=== PATIENT | female | born 1975 | race Asian ===

== ENCOUNTER 2019-09-05 18:48 | Inpatient (IN) | payer MEDICAID ==
[~2019-09-05] VITALS: Ht 162.6 cm; Wt 59.2 kg
[2019-09-05] MEDS ORDERED: LEVO150 PO (23:56)
[2019-09-05] MEDS ORDERED: GABA-1181 PO (23:56)
[2019-09-05] MEDS ORDERED: DULO60CA44 PO (23:56)
[2019-09-06] MEDS ORDERED: PRAZ1 PO (00:01)
[2019-09-06] MEDS ORDERED: HALOPERIDOL 5 MG TABLET PO PRN (00:15)
[2019-09-06] MEDS ORDERED: ZOLPIDEM TARTRATE 10 MG TABLET PO PRN (00:15)
[2019-09-06] MEDS: LORazepam 2 MG TABLET PO PRN ×3 (00:54→18:45)
[2019-09-06 01:32] VITALS: BP 113/86
[2019-09-06] MEDS ORDERED: CloNIDine HCL 0.1 MG TABLET PO PRN (08:45)
[2019-09-06] MEDS ORDERED: ALBUTEROL SULFATE HFA 90 MCG/PUFF 8 GM INHALER IH PRN (08:45)
[2019-09-06] MEDS ORDERED: PETROLATUM,WHITE 28 GM JELLY TP PRN (08:45)
[2019-09-06] MEDS ORDERED: ONDANSETRON HCL 4 MG TABLET PO PRN (08:45)
[2019-09-06] MEDS ORDERED: MAGNESIUM HYDROXIDE SUSPENSION 30 ML UDCUP PO PRN (08:45)
[2019-09-06] MEDS ORDERED: LOPERAMIDE HCL 2 MG CAPSULE PO PRN (08:45)
[2019-09-06] MEDS ORDERED: ACETAMINOPHEN 325 MG TABLET PO PRN (08:45)
[2019-09-06] MEDS ORDERED: NICOTINE 14 MG/24 HOUR PATCH TD PRN (08:45)
[2019-09-06] MEDS ORDERED: MAG HYDROX/AL HYDROX/SIMETH ES 30 ML SUSPENSION UDCUP PO PRN (08:45)
[2019-09-06] MEDS ORDERED: GuaiFENesin/D-METHORPHAN [SUGAR-FREE] 200-20MG/10 ML SYRUP UDCUP PO PRN (08:45)
[2019-09-06] MEDS ORDERED: IBUPROFEN 400 MG TABLET PO PRN (08:45)
[2019-09-06] MEDS ORDERED: DOCUSATE SODIUM 100 MG CAPSULE PO PRN (08:45)
[2019-09-06] MEDS: GABAPENTIN 300 MG CAPSULE PO SCH ×3 (09:16→17:09)
[2019-09-06 10:16] VITALS: BP 100/72
[2019-09-06] MEDS: DULoxetine HCL 60 MG CAPSULE PO SCH (10:29)
[2019-09-06 16:20] VITALS: BP 98/60
[2019-09-06] MEDS: IBUPROFEN 400 MG TABLET PO PRN (18:45)
[2019-09-06] MEDS: PRAZOSIN HCL 2 MG CAPSULE PO SCH (20:48)
[2019-09-06] MEDS ORDERED: PRAZOSIN HCL 1 MG CAPSULE PO SCH (21:00)
[2019-09-07 02:14] VITALS: BP 102/68
[2019-09-07] MEDS: LEVOTHYROXINE SODIUM 150 MCG TABLET PO SCH (05:59)
[2019-09-07] MEDS ORDERED: LEVOTHYROXINE SODIUM 150 MCG TABLET PO SCH (06:30)
[2019-09-07 08:23] LABS: BASOPHILS % (AUTO) 0.9 % (0.0-2.0); EOSINOPHILS % (AUTO) 5.1 % (1.0-6.0); HEMATOCRIT 34.9 % (36-46); HEMOGLOBIN 11.9 g/dL (12.0-16.0); LYMPHOCYTES # (AUTO) 1.9 K/uL (1.0-4.8); LYMPHOCYTES % (AUTO) 36.6 % (22.0-44.0); MEAN CORPUSCULAR VOLUME 91 fL (80-100); MONOCYTES # (AUTO) 0.8 K/uL (0.1-1.0); MONOCYTES % (AUTO) 15.8 % (2.0-9.0); NEUTROPHILS # (AUTO) 2.2 K/uL (1.8-7.7); NEUTROPHILS % (AUTO) 41.6 % (40.0-70.0); PLATELET COUNT (AUTO) 278 K/uL (150-450); RED BLOOD CELL COUNT(AUTO) 3.82 MIL/uL (4.00-5.20); RED CELL DISTRIBUTION WIDTH 13.2 % (11.5-14.5)
[2019-09-07 08:33] LABS: HEMOGLOBIN A1C 5.3 % (3.8-5.6)
[2019-09-07 09:03] LABS: ALANINE AMINOTRANSFERASE 20 U/L (12-78); ALBUMIN 3.6 g/dL (3.4-5.0); ALKALINE PHOSPHATASE 74 U/L (46-116); ANION GAP 10 mmol/L (8-16); ASPARTATE AMINOTRANSFERASE 17 U/L (15-37); BILIRUBIN,TOTAL 0.1 mg/dL (0.1-1.0); CALCIUM, TOTAL 8.5 mg/dL (8.8-10.5); CARBON DIOXIDE 22 mmol/L (22-29); CHLORIDE 106 mmol/L (98-107); CHOLESTEROL 158 mg/dL (131-200); CREATININE 0.82 mg/dL (0.60-1.30); GLOMERULAR FILTR. RATE CALC > 60 mL/min (>60); GLUCOSE,RANDOM 96 mg/dL (70-110); HDL CHOLESTEROL 45 mg/dL (40-60); POTASSIUM 3.8 mmol/L (3.5-5.1); SODIUM SERUM 138 mmol/L (136-145); TOTAL PROTEIN, SERUM 7.2 g/dL (6.4-8.2); TRIGLYCERIDES 112 mg/dL (15-150); UREA NITROGEN, BLOOD 18 mg/dL (7-18)
[2019-09-07 09:04] LABS: CHOL/HDL RATIO 3.5 (3.9-5.7); FREE T4 (FREE THYROXINE) 0.85 ng/dL (0.76-1.46); LDL CHOL (CALC.) 91 mg/dL (0-130); THYROID STIMULATING HORMONE 1.28 uIU/mL (0.36-3.74)
[2019-09-07] MEDS: GABAPENTIN 300 MG CAPSULE PO SCH ×3 (09:18→17:05)
[2019-09-07] MEDS: DULoxetine HCL 60 MG CAPSULE PO SCH (09:18)
[2019-09-07] MEDS: PROPRANOLOL HCL 10 MG TABLET PO SCH ×3 (09:21→17:05)
[2019-09-07 09:33] LABS: APPEARANCE,URINE CLOUDY (CLEAR); BILIRUBIN,URINE NEGATIVE (NEGATIVE); GLUCOSE, URINE (UA) NEGATIVE (NEGATIVE); KETONES,URINE NEGATIVE (NEGATIVE); LEUKOCYTE ESTERASE ,URINE NEGATIVE (NEGATIVE); NITRATE,URINE NEGATIVE (NEGATIVE); OCCULT BLOOD,URINE NEGATIVE (NEGATIVE); PH,URINE 7.5 (5.0-8.0); PROTEIN,URINE NEGATIVE (NEGATIVE); UROBILINOGEN,URINE 0.2 mg/dL (<=1.0)
[2019-09-07 09:37] LABS: AMPHET/METH SCREEN,URINE NEGATIVE (NEGATIVE); BARBITURATE SCREEN, URINE NEGATIVE (NEGATIVE); BENZODIAZEPINES SCREEN,URINE NEGATIVE (NEGATIVE); CANNABINOID SCREEN,URINE NEGATIVE (NEGATIVE); COCAINE SCREEN,URINE NEGATIVE (NEGATIVE); METHADONE SCREEN, URINE NEGATIVE (NEGATIVE); OPIATE SCREEN,URINE NEGATIVE (NEGATIVE)
[2019-09-07 09:40] LABS: PHENCYCLIDINE SCREEN,URINE NEGATIVE (NEGATIVE)
[2019-09-07 09:54] LABS: BACTERIA,URINE None Seen /HPF (None Seen); RBC,URINE None Seen /HPF (0-2); SQUAMOUS EPITHELIAL CELL,UR Few /LPF (None Seen); WBC,URINE None Seen /HPF (0-5)
[2019-09-07 09:55] LABS: AMORPHOUS SEDIMENT,UR Moderate /LPF (None Seen)
[2019-09-07 12:11] VITALS: BP 110/76
[2019-09-07] MEDS: OxyCODONE HCL/ACETAMINOPHEN 5-325 MG TABLET PO PRN ×2 (12:11→20:53)
[2019-09-07] MEDS: LORazepam 2 MG TABLET PO PRN ×3 (13:27→23:43)
[2019-09-07 16:10] VITALS: BP 106/61
[2019-09-07] MEDS: IBUPROFEN 400 MG TABLET PO PRN (18:12)
[2019-09-07] MEDS: PRAZOSIN HCL 2 MG CAPSULE PO SCH (20:53)
[2019-09-08 01:23] VITALS: BP 107/74
[2019-09-08] MEDS: LEVOTHYROXINE SODIUM 150 MCG TABLET PO SCH (06:22)
[2019-09-08 08:19] VITALS: BP 100/59
[2019-09-08 09:05] VITALS: BP 110/74
[2019-09-08] MEDS: PROPRANOLOL HCL 10 MG TABLET PO SCH ×2 (09:06→12:39)
[2019-09-08] MEDS: DULoxetine HCL 60 MG CAPSULE PO SCH (09:06)
[2019-09-08] MEDS: GABAPENTIN 300 MG CAPSULE PO SCH ×2 (09:06→12:39)
[2019-09-08] MEDS: OxyCODONE HCL/ACETAMINOPHEN 5-325 MG TABLET PO PRN (09:07)
[2019-09-08] MEDS: LORazepam 2 MG TABLET PO PRN (09:51)
== END 2019-09-08 14:15 | disposition home or self-care (01) | DRG 751 ==
LOC: B3A 09-06 00:40
PROVIDERS: ADMIT Psychiatry & Neurology Psychiatry; ATTEND Psychiatry & Neurology Psychiatry
DX: F33.9 Major depressive disorder, recurrent, unspecified (principal); I48.91 Unspecified atrial fibrillation; R45.851 Suicidal ideations; E03.9 Hypothyroidism, unspecified; F43.10 Post-traumatic stress disorder, unspecified; M79.7 Fibromyalgia; Z62.810 Personal history of physical and sexual abuse in childhood; Z79.899 Other long term (current) drug therapy; Z81.8 Family history of other mental and behavioral disorders
CPT/HCPCS: 80307; 83036; 84439; 84443